=== PATIENT | female | born 1950 ===

== ENCOUNTER 2017-06-05 07:30 | Outpatient (CLI) | payer OTHER | END 2017-06-05 07:53 | disposition home or self-care (01) | LOC: SONOGRAMA 07:30 | DX: N20.0 Calculus of kidney (principal) ==

== ENCOUNTER 2017-06-05 07:42 | Outpatient (CLI) | payer OTHER | END 2017-06-05 07:53 | disposition home or self-care (01) | LOC: RAD 07:42 | DX: N20.0 Calculus of kidney (principal) ==